=== PATIENT | male | born 1990 | race African-American/Black ===

== ENCOUNTER 2017-12-08 22:49 | Emergency (ER) | payer OTHER ==
[~2017-12-08] VITALS: Ht 188 cm; Wt 86.2 kg
[~2017-12-08 22:49] MED LIST: NOHOMEMEDICATIONS; PERCOCET 5-3251 EACH PO; SILVADENE20 GM TP
[2017-12-09] MEDS ORDERED: NORCO 5-325 TA1 EACH PO (00:09)
[2017-12-09 00:56] VITALS: BP 124/87
== END 2017-12-09 00:57 | disposition home or self-care (01) ==
LOC: ER 22:49
DX: S62.334A Displaced fracture of neck of fourth metacarpal bone, right hand, initial encounter for closed fracture (principal); W22.8XXA Striking against or struck by other objects, initial encounter; Y92.89 Other specified places as the place of occurrence of the external cause; Y93.89 Activity, other specified; Y99.8 Other external cause status

== ENCOUNTER 2018-03-03 20:26 | Emergency (ER) | payer OTHER ==
[~2018-03-03 20:26] MED LIST changes: +NORCO 5-325 TA1 EACH PO
== END 2018-03-03 21:07 | disposition short-term general hospital (02) ==
LOC: ER 20:26
DX: S91.301A Unspecified open wound, right foot, initial encounter (principal); S51.001A Unspecified open wound of right elbow, initial encounter; S81.801A Unspecified open wound, right lower leg, initial encounter; S21.101A Unspecified open wound of right front wall of thorax without penetration into thoracic cavity, initial encounter; S31.000A Unspecified open wound of lower back and pelvis without penetration into retroperitoneum, initial encounter; W34.00XA Accidental discharge from unspecified firearms or gun, initial encounter; Y92.810 Car as the place of occurrence of the external cause; Y93.89 Activity, other specified; Y99.8 Other external cause status